=== PATIENT | female | born 1970 | race Caucasian/White ===

== ENCOUNTER 2024-02-29 07:57 | Outpatient (OUT) | payer OTHER, SELFPAY ==
--- NOTE | 2024-02-29 07:59 | US_ITS ---
[address] [address] Patient Name: HUMPHREY MONGE MRN: [id number] date: 1970 Sex: F Assigned Patient Location: [facility] Current Patient Location: [facility] Accession/Order Number: [id number] Exam Date: 02/29/2024 08:00 Report Date: 02/29/2024 09:27 At the request of: RISHI FUNK Procedure: US pelvis w/ transvaginal EXAMINATION: US pelvis w/ transvaginal HISTORY: PELVIC PAIN, THICKENED ENDOMETRIUM , abnormal pelvic exam, cervical polyp, postmenopausal bleeding COMPARISON: No relevant comparison available. TECHNIQUE: Transabdominal and/or transvaginal sonographic examination was performed as indicated by examination type. FINDINGS: UTERUS: Heterogeneous myometrium without definable mass/nodules. Uterus size: 6.0 x 3.2 x 4.3 cm ENDOMETRIUM: Normal homogeneous appearance. Endometrial thickness: 4 mm RIGHT OVARY: Normal size and appearance. Duplex Doppler demonstrates normal waveform and flow; resistive index 0.6. Ovary size: 1.1 x 0.8 x 1.3 cm LEFT OVARY: Normal size and appearance. Duplex Doppler demonstrates normal waveform and flow; resistive index 0.4. Ovary size: 2.3 x 1.6 x 1.1 cm CUL-DE-SAC: Unremarkable. No significant free fluid. BLADDER: Unremarkable. OTHER: None. US/US pelvis w/ transvaginal IMPRESSION: 1. Heterogeneous myometrium of the uterus; nonspecific. Developing leiomyomas? 2. Unremarkable endometrium and endometrial cavity. 3. Unremarkable ovaries. Electronically authenticated by: CELIA ARCOS Date: 02/29/2024 09:27
== END 2024-02-29 07:58 | disposition home or self-care (01) ==
LOC: NOMS 07:58
PROVIDERS: PCP Family Medicine; Visit Provider Obstetrics & Gynecology
DX: N88.2 Stricture and stenosis of cervix uteri (principal); R93.89 Abnormal findings on diagnostic imaging of other specified body structures; R10.2 Pelvic and perineal pain; N94.10 Unspecified dyspareunia
CPT/HCPCS: 76830; 76856

== ENCOUNTER 2024-03-13 08:33 | Outpatient (OUT) | payer OTHER, SELFPAY ==
--- OUTSIDE RECORDS SUMMARY | 2024-03-13 08:56 | XMS_ITS | CCD ---
Author Organization [facility] Care Team Providers Care Film Numberer Name Role Phone BAY COLES Referring Unavailable BAY COLES Primary Care Unavailable CHAVEZ RAMESH Referring Unavailable BAY COLES Primary Care Unavailable ANITA WARE Attending Unavailable CHAVEZ RAMESH Attending Unavailable CHAVEZ RAMESH Attending Unavailable RISHI FUNK Attending Unavailable CHAVEZ RAMESH Referring Unavailable RISHI FUNK Attending Unavailable Problems Problem Classification Problem Date Documented Da te Episodic/Chronic Other screening for suspected conditions (not mental disorders or infectious disease) (1 source) Encounter for screening mammogram for malignant neoplasm of breast; Translations: [Encounter for screening mammogram for malignant neoplasm of breast] Onset: 01-26-2024 Episodic Results Test Name Value Interpretation Reference Range Facil ity MAMM SCREENING BILATERAL W C field cane scaler 01-26-2024 MAMM SCREENING BILATERAL W CAD MAMM SCREENING BILATERAL W CAD EXAM: MAMM SCREENING BILATERAL W CAD, 01/26/2024 7:54 AM CLINICAL INDICATIONS: Screening, Visit for screening mammogram COMPARISON: 01/21/2023 TECHNIQUE: Bilateral digital tomosynthesis MLO and CC views of the breasts were obtained, with creation of synthetic 2D views. Computer aided detection was utilized. FINDINGS: There are scattered areas of fibroglandular density. There are no suspicious masses, calcifications, or areas of architectural distortions. IMPRESSION: No mammographic evidence of malignancy. BI-RADS: BI-RADS 1 - Negative Recommendation: Routine screening mammogram in 1 year. Finalized by Brandon Coto MD on 01/26/2024 9:31 AM 1 b MAMM 1 YR Normal [facility] CBC AND AUTO DIFFon 01-12-20 ABSOLUTE BASOPHIL 0.1 X10E9/L Normal 0.0-0.2 [facility] Comment on above: Performed By: #### C BRIAN CMP, 55493-6, THYR #### [facility] ([id number]) [address], [address] [place] [address] ABSOLUTE NEUTROPHIL 4.1 X10E9/L Normal 1.5-6.[address] [facility] Comment on above: Performed By: #### C BRIAN, CMP, 15891-2, THYR #### [facility] ([id number]) [address], [address] [place] [address] Basophils/100 WBC (Bld) 0.9 % Normal [facility] Comment on above: Performed By: #### C BRIAN, CMP, 46302-6, THYR #### [facility] ([id number]) [address], [address] [place] [address] Eosinophils (Bld) [#/Vol] 0.1 10*3/uL Normal 0.0-0.4 [facility] Comment on above: Performed By: #### C BRIAN, CMP, 34745-5, THYR #### [facility] ([id number]) [address], [address] [place] [address] Eosinophils/100 WBC (Bld) 1.5 % Normal [facility] Comment on above: Performed By: #### C BRIAN CMP, 91390-1, THYR #### [facility] ([id number]) [address], [address] [place] [address] Erythrocyte distribution width (RBC) [Ratio] 12.3 % Normal 11.5-15.0 [facility] Comment on above: Performed By: #### C BCA, CMP, 52436-4, THYR #### [facility] ([id number]) [address], [address] [place] [address] Hematocrit (Bld) [Volume fraction] 39.8 % Normal 35-47 [facility] Comment on above: Performed By: #### C BCA, CMP, 43481-9, THYR #### [facility] ([id number]) [address], [address] [place] [address] Hemoglobin (Bld) [Mass/Vol] 13.4 g/dL Normal 11.7-15.5 [facility] Comment on above: Performed By: #### C BRIAN CMP, 25038-9, THYR #### [facility] ([id number]) [address], [address] [place] [address] Lymphocytes (Bld) [#/Vol] 1.8 10*3/uL Normal 1.0-3.5 [facility] Comment on above: Performed By: #### C BRIAN CMP, 10891-6, THYR #### [facility] ([id number]) [address], [address] [place] [address] Lymphocytes/100 WBC (Bld) 27.1 % Normal [facility] Comment on above: Performed By: #### Casey TORRES, CMP, 28671-3, THYR #### [facility] ([id number]) [address], [address] [place] [address] MCH (RBC) [Entitic mass] 31.6 pg Normal 27-34 [facility] Comment on above: Performed By: #### C BRIAN CMP, 50881-3, THYR #### [facility] ([id number]) [address], [address] [place] [address] MCHC (RBC) [Mass/Vol] 33.6 g/dL Normal 32-36 [facility] Comment on above: Performed By: #### C BCA, CMP, 73750-5, THYR #### [facility] ([id number]) [address], [address] [place] [address] MCV (RBC) [Entitic vol] 94 fL Normal 80-100 [facility] Comment on above: Performed By: #### C BCA, CMP, 79839-2, THYR #### [facility] ([id number]) [address], [address] [place] [address] Monocytes (Bld) [#/Vol] 0.6 10*3/uL Normal 0-0.9 [facility] Comment on above: Performed By: #### C BCA, CMP, 12672-0, THYR #### [facility] ([id number]) [address], [address] [place] [address] Monocytes/100 WBC (Bld) 9.1 % Normal [facility] Comment on above: Performed By: #### C BRIAN, CMP, 38435-0, THYR #### [facility] ([id number]) [address], [address] [place] [address] Neutrophils/100 WBC (Bld) 61.4 % Normal [facility] Comment on above: Performed By: #### C BCA, CMP, 41180-4, THYR #### [facility] ([id number]) [address], [address] [place] [address] Platelet mean volume (Bld) [Entitic vol] 9.1 fL Normal 7-12 [facility] Comment on above: Performed By: #### C BRIAN, CMP, 95006-4, THYR #### [facility] ([id number]) [address], [address] [place] [address] Platelets (Bld) [#/Vol] 303 10*3/uL Normal 150-450 [facility] Comment on above: Performed By: #### C BCA, CMP, 20208-3, THYR #### [facility] ([id number]) [address], [address] [place] [address] RBC COUNT 4.24 X10E12/L Normal 3.80-5.20 [facility] Comment on above: Performed By: #### C BCA, CMP, 20239-2, THYR #### [facility] ([id number]) [address], [address] [place] [address] WBC (Bld) [#/Vol] 6.6 10*3/uL Normal 4.0-11.0 [facility] Comment on above: Performed By: #### C BCA, CMP, 05463-1, THYR #### [facility] ([id number]) [address], [address] [place] [address] COMPREHENSIVE METABOLIC PANE Quique 01-12-2024 Albumin [Mass/Vol] 4.6 g/dL Normal 3.2-5.3 [facility] Comment on above: Performed By: #### C BCA, CMP, 54175-9, THYR #### [facility] ([id number]) [address], [address] [place] [address] ALP [Catalytic activity/Vol] 54 U/L Normal 39-130 [facility] Comment on above: Performed By: #### C BCA, CMP, 92913-7, THYR #### [facility] ([id number]) [address], [address] [place] [address] ALT [Catalytic activity/Vol] 11 U/L Normal 0-31 [facility] Comment on above: Performed By: #### C BCA, CMP, 33337-3, THYR #### [facility] ([id number]) [address], [address] [place] [address] Anion gap [Moles/Vol] 8 mmol/L Normal 5-15 [facility] Comment on above: Performed By: #### C BCA, CMP, 44633-5, THYR #### [facility] ([id number]) [address], [address] [place] [address] AST [Catalytic activity/Vol] 18 U/L Normal 0-41 [facility] Comment on above: Performed By: #### C BCA, CMP, 96738-3, THYR #### [facility] ([id number]) [address], [address] [place] [address] Bilirubin [Mass/Vol] 0.8 mg/dL Normal 0.3-1.[address] [facility] Comment on above: Performed By: #### C BCA, CMP, 58315-1, THYR #### [facility] ([id number]) [address], [address] [place] [address] Calcium [Mass/Vol] 9.5 mg/dL Normal 8.5-10.5 [facility] Comment on above: Performed By: #### C BCA, CMP, 13396-8, THYR #### [facility] ([id number]) [address], [address] [place] [address] Chloride [Moles/Vol] 94 mmol/L Low 98-[address] [facility] Comment on above: Performed By: #### C BCA, CMP, 57172-7, THYR #### [facility] ([id number]) [address], [address] [place] [address] CO2 [Moles/Vol] 31 mmol/L Normal 22-32 [facility] Comment on above: Performed By: #### C BCA, CMP, 99313-5, THYR #### [facility] ([id number]) [address], [address] [place] [address] Creatinine [Mass/Vol] 0.90 mg/dL Normal 0.40-1.00 [facility] Comment on above: Result Comment: METH OD TRACEABLE TO IDMS STANDARD Performed By: #### C BCA, CMP, 68996-4, THYR #### [facility] ([id number]) [address], [address] [place] [address] GFR/1.73 sq M.predicted among non-blacks MDRD (S/P/Bld) [Vol rate/Area] 75 mL/min/{1.73_m2} Normal >59 [facility] Comment on above: Result Comment: Reported eGFR is based on the CKD-EPI 2020 equation that does not use a race coefficient. Performed By: #### C BRUNO TORRES, 79871-7, THYR #### [facility] ([id number]) [address], [address] [place] [address] Glucose [Mass/Vol] 103 mg/dL High 65-99 [facility] Comment on above: Performed By: #### C BRUNO TORRES, 55687-6, THYR #### [facility] ([id number]) [address], [address] [place] [address] Potassium [Moles/Vol] 3.3 mmol/L Low 3.5-5.0 [facility] Comment on above: Performed By: #### C BRUNO TORRES, 84111-1, THYR #### [facility] ([id number]) [address], [address] [place] [address] Protein [Mass/Vol] 7.2 g/dL Normal 6.0-8.0 [facility] Comment on above: Performed By: #### C BRUNO TORRES, 96985-0, THYR #### [facility] ([id number]) [address], [address] [place] [address] Sodium [Moles/Vol] 133 mmol/L Low 134-146 [facility] Comment on above: Performed By: #### C BRIAN, CMP, 37311-9, THYR #### [facility] ([id number]) [address], [address] [place] [address] Urea nitrogen [Mass/Vol] 18 mg/dL Normal 5-23 [facility] Comment on above: Performed By: #### C BRIAN CMP, 26901-5, THYR #### [facility] ([id number]) [address], [address] [place] [address] Lipid 1996 panelon 04-10-202 4 Cholesterol [Mass/Vol] 214 mg/dL High 150-200 [facility] Comment on above: Performed By: #### Casey TORRES CMP, 17163-1, THYR #### [facility] ([id number]) [address], [address] [place] [address] Cholesterol in HDL [Mass/Vol] 87 mg/dL Normal >39 [facility] Comment on above: Result Comment: HDL <40 mg/dL - High Risk HDL > or = 40mg/dL- Desirable HDL >60 mg/dL - Negative Risk Performed By: #### Casey TORRES, BRUNO, 69790-9, THYR #### [facility] ([id number]) [address], [address] [place] [address] Cholesterol in LDL [Mass/Vol] 114 mg/dL Normal <130 [facility] Comment on above: Result Comment: LDL <100 mg/dL - Desirable LDL >160 mg/dL - High Risk Performed By: #### Casey TORRES CMP, 51639-1, THYR #### [facility] ([id number]) [address], [address] [place] [address] Cholesterol in VLDL [Mass/Vol] 13 mg/dL Normal 0-30 [facility] Comment on above: Performed By: #### Casey TORRES CMP, 22554-3, THYR #### [facility] ([id number]) [address], [address] [place] [address] CHOLESTEROL:HDL 2.5 Normal 1.0-5.0 [facility] Comment on above: Performed By: #### Casey TORRES, BRUNO, 90264-7, THYR #### [facility] ([id number]) [address], [address] [place] [address] Triglyceride [Mass/Vol] 65 mg/dL Normal 27-150 [facility] Comment on above: Performed By: #### C BCA, CMP, 18238-6, THYR #### [facility] ([id number]) [address], [address] [place] [address] THYROID PROFILEon 01-12-2024 Free T4 [Mass/Vol] 1.02 ng/dL Normal 0.61-1.60 [facility] Comment on above: Performed By: #### C BCA, CMP, 36145-1, THYR #### [facility] ([id number]) [address], [address] [place] [address] TSH 3.49 uIU/mL Normal 0.49-4.67 [facility] Comment on above: Performed By: #### C BCA, CMP, 91053-0, THYR #### [facility] ([id number]) [address], [address] [place] [address] Encounters Encounter Date Encounter Type Care Provider Facility Start: 02-29-2024 End: 02-29-2024 ambulatory RISHI GOOD Not Available Start: 01-27-2024 End: 01-27-2024 ambulatory RISHI GOOD Not Available Start: 01-26-2024 End: 01-27-2024 ambulatory CHAVEZ RAPHAELO [facility] Start: 01-12-2024 End: 01-13-2024 ambulatory BAY Bijan [facility] Start: 01-12-2024 Encounter for genera l adult medical examination without abnormal findings [facility] Start: 12-22-2023 End: 12-22-2023 ambulatory CHAVEZ L FLORO Not Available Start: 12-08-2023 End: 12-08-2023 ambulatory CHAVEZ L FLORO Not Available Start: 11-02-2023 End: 11-02-2023 ambulatory ANITA WARE Not Available Payers Date Payer Category Payer Unknown [id number] 2022 Unknown [id number] 1970 Unknown [id number] 2.16.8 [id number] 1970 Unknown [id number] 2.16.8 [id number] 1970 Unknown [id number] 2.16.84 [id number] 1970 Unknown [id number] 2.16.84 [id number] 1970 Unknown [id number] 2.16.84 [id number] 1970 Unknown [id number] 2.16.84 [id number] 1970 Unknown [id number] 2.16.84 [id number] Summary Purpose Family History No Family History Records FoundNo Family History Records Found Advance Directives No Advanced Directives Records FoundNo Advanced Directives Records Found Additional Source Comments INFORMATION SOURCE (unrecogn ized section and content) DATE CREATED AUTHOR 01/27/2024 [facility] DATE CREATED AUTHOR AUTHOR'S GALI MONTEJO 02/29/2024 [facility] FOR RECORDS PERTAINING TO PATIENTS WHO ARE OR HAVE BEEN ENROLLED IN A CHEMICAL DEPENDENCY/SUBSTANCEABUSE PROGRAM, SOME INFORMATION MAY BE OMITTED. This clinical summary was aggregated from multiple sources. Caution should be exercised in using it in the provision of clinical care. This summary normalizes information from multiple sources, and as a consequence, information in this document may materially change the coding, format and clinical context of patient data. In addition, data may be omitted in some cases. CLINICAL DECISIONS SHOULD BE BASED ON THE PRIMARY CLINICAL RECORDS. [facility] [employer] [facility] provides no warranty or guarantee of the accuracy or completeness of information in this document.
--- NOTE | 2024-03-13 09:11 | ECG_ITS ---
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
== END 2024-03-13 08:34 | disposition home or self-care (01) ==
LOC: PST 08:34
PROVIDERS: PCP Family Medicine; Visit Provider Obstetrics & Gynecology
DX: Z01.810 Encounter for preprocedural cardiovascular examination (principal); N88.2 Stricture and stenosis of cervix uteri; R87.618 Other abnormal cytological findings on specimens from cervix uteri; R10.2 Pelvic and perineal pain
CPT/HCPCS: 93005